=== PATIENT | female | born 1955 | race Caucasian/White ===

== ENCOUNTER 2017-07-26 00:33 | Day surgery (SDC) | payer BC ==
[2017-07-26] VITALS (8 sets, daily range): BP systolic 76–109; BP diastolic 57–96
[~2017-07-26] VITALS: Ht 177.8 cm; Wt 114.8 kg
[~2017-07-26 00:33] MED LIST: ACYC-50 PO; ALB18R INH; AZIT-17 PO; CIT20 PO; CITA-155 PO; DIAZ-1 PO; ETHI1TAB26 PO; IBU800 PO; IBUP-1618 PO; LEVO-85 PO; LIDO5CRE TP; LOR1 PO; LOR5/325 PO; LOR75 PO; OXYC-378 PO; OXYC-944 PO; OXYC10TA67 PO; PRE20 PO; PROC10TA4 PO; VENL225T5 PO; VENL25TA29 PO; VENL75TA12 PO; VENL75TA98 PO
[2017-07-26] MEDS ORDERED: PROPOFOL EMUL(*) 10MG/ML 20 ML 60 ML ONE (06:48)
[2017-07-26] MEDS ORDERED: LIDOCAINE MPF 1% 5 ML VIAL ONE (06:48)
[2017-07-26] MEDS ORDERED: MIDAZOLAM 2 MG/2 ML VIAL IVP PRN (07:20)
[2017-07-26] MEDS ORDERED: LIDOCAINE/SOD BICARB 8.4% SYR ID ONE (07:20)
[2017-07-26] MEDS ORDERED: NORMOSOL R SOLN(*) 1000 ML BAG 1,000 ML IV PRN (07:20)
--- NOTE | 2017-07-26 07:26 | Short(Outpt) Discharge Summary ---
Discharge Summary Reason for Hosp/Final Diag: (1) Encounter for screening colonoscopy Hospital Course & Plan: sigmoid diverticulosis Departure Discharge to: Home Discharge Instructions Home Meds Active Scripts Venlafaxine Hcl (VENLAFAXINE HCL ER) 225 Mg Tab.er.24, 225 MG PO QDAY for 90 Days, #90 TAB 3 Refills Prov:GEORGE BATISTA-CHAVEZ, ONC 04/09/17 Citalopram Hydrobromide (CELEXA) 10 Mg Tablet, 10 MG PO QDAY for 90 Days, #90 TAB 3 Refills Prov:GEORGE BATISTAP-CHAVEZ, ONC 02/12/17 Discontinued Scripts Lorazepam (LORAZEPAM) 1 Mg Tab, 1 MG PO Q6H for anxiety and insomnia, #90 TAB Prov:GEORGE BATISTA-CHAVEZ, ONC 07/04/17 Diet: High Fiber Activity: As Tolerated SANTIAGO MATIAS MD Jul 26, 2017 07:26
--- NOTE | 2017-07-26 07:26 | Post Operative Progress Note ---
Post Operative Progress Note Date: Jul 26, 2017 Time: 08:44 Surgeon: margarita Anesthesia: dr schroeder Pre-Op Diagnosis: screening colonoscopy Post-Op Diagnosis: sigmoid diverticulosis Procedure(s): colonoscopy SANTIAGO MATIAS MD Jul 26, 2017 07:26
--- NOTE | 2017-07-26 14:55 | OPERATIVE REPORT 1 ---
EVENT DATE: July 26, 2017 SURGEON: Red Tyson MD ANESTHESIOLOGIST: Yovany Henderson MD ANESTHESIA: Sedation. PREOPERATIVE DIAGNOSIS Screening colonoscopy. POSTOPERATIVE DIAGNOSIS Sigmoid diverticulosis. PROCEDURE PERFORMED Colonoscopy. DESCRIPTION OF PROCEDURE The patient was placed in the left lateral decubitus position and given intravenous sedation. The rectal exam was unremarkable. A flexible colonoscope was inserted and advanced to the cecum. She had some liquid stool throughout the colon. We were able to suction this pretty effectively and get a good look. No abnormalities were noted in the cecum, right colon, transverse , or descending. Care was taken to look behind the haustral folds. In the sigmoid colon, she had some diverticula. No evidence of diverticulitis. The rectum was normal. The scope was retroflexed in the rectum, and that appeared to be normal. The patient will require repeat colonoscopy in 10 years. YANETH
== END 2017-07-26 09:50 | disposition home or self-care (01) ==
LOC: OR 00:33
PROVIDERS: ATTEND Surgery
DX: Z12.11 Encounter for screening for malignant neoplasm of colon (principal); K57.30 Diverticulosis of large intestine without perforation or abscess without bleeding
CPT/HCPCS: 00812; 45378; J2001; J2704

== ENCOUNTER 2017-08-17 14:30 | Outpatient (RCR) | payer BC ==
[2017-06-11] MEDS: LIDOCAINE/SOD BICARB 8.4% SYR ID PRN (12:29)
[2017-06-11] MEDS: NS(*) 0.9% 100 ML BAG 100 ML IVPB PRN (12:30)
[2017-06-11 12:31] VITALS: BP 118/83
--- NOTE | 2017-06-11 13:14 | ONC Progress Note - NP.Halsey ---
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 continues with maintenance Rituxan every 8 weeks and monthly IVIG. She will receive IVIG today and Rituxan cycle 7 is scheduled for 07/12/2017. Overall patient is feeling well and has no symptoms of sinus pain or congestion, shortness of breath, nausea or vomiting, diarrhea or constipation. Patient is reporting left flank pain which started last week. She has been taking ibuprofen and using heat and ice with relief. Pain increases she stands or ambulates and is better at rest. Patient followed with chiropractor but reports that pain felt worse after manipulation. She does share that she had a hoarse knock the wind out of her and she feels that is when her symptoms started. She would like a urine sample to make sure she is not having a kidney infection or bladder infection. She denies symptoms with urinating. 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 The patient received chemotherapy with six cycles of R-CHOP with rituximab, cyclophosphamide, doxorubicin, vincristine and prednisone, received between September 2008 through January 2009. Her treatment was followed by two courses of maintenance rituximab therapy weekly for four weeks, given in July 2009 and January 2010. The patient was put in remission. She then presented with right parotid gland swelling. She had a CT of soft tissue of neck done on December 28, [address] report showed two well-circumscribed hypo- attenuating homogeneous enhancing masses in the right parotid gland. The smaller of the two may represent an intraparotid lymph node while the larger of the two measures 1.6 cm in diameter. The patient ended by having excisional biopsy of the right parotid lymph node done on January 11, 2016, and the pathology came back positive for CD10 positive clonal B-cell population 14.2% of the sample with predominantly intermediate/mixed cell size, and the pathology was consistent with low grade follicular lymphoma, grade I to II, with increased proliferation index, and her Ki-67 was positive 30 to 70%, average 50%. 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 Bone marrow aspiration biopsy done on January 25, 2016 came back negative for lymphomatous involvement. PET/CT scan done on February 07, 2016 showed a new 8 mm nodule within the anterior aspect of the right parotid gland with SUV 3.2. No distant metastatic disease. There is chronic mucosal thickening within the right maxillary sinus with SUV 4.6, likely inflammatory. The patient started treatment with Rituximab and bendamustine on February 10, 2016. The patient started chemotherapy with rituximab and bendamustine on February 10, 2016. The patient received four courses of rituximab and bendamustine completed on May 05, 2016. She started maintenance rituximab therapy on July 18, 2016. 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 Alcohol History She occasionally has a beer Recreational Drug History She denies use Smoking History: No Smoking Status: Never Smoker Exposure to Second Hand Smoke?: No Medications and Allergies Active Scripts Venlafaxine Hcl (VENLAFAXINE HCL ER) 225 Mg Tab.er.24, 225 MG PO QDAY for 90 Days, #90 TAB 3 Refills Prov:GEORGE BATISTA PLASTICS ENGINEERING TEACHER-BC, ONC 04/09/17 Citalopram Hydrobromide (CELEXA) 10 Mg Tablet, 10 MG PO QDAY for 90 Days, #90 TAB 3 Refills Prov:GEORGE BATISTA PLASTICS ENGINEERING TEACHER-BC, ONC 02/12/17 Allergies: Coded Allergies: Penicillins (Verified Allergy, Mild, 04/15/17) Review of System/Physical Exam Review of Systems All Systems Reviewed/Normal: Yes, Except as Noted Hematologic: Positive for Fatigue Musculoskeletal: Positive for Muscle Pain (left lateral hip pain) Psychiatric: Depression (this is doing well with current medications) Physical Exam Vital Signs Temperature: 98.6 Pulse: 69 BP Systolic: 118 BP Diastolic: 83 Respiratory Rate: 16 O2 SAT: 92 O2 Delivery: Height (inches) 70.00 Weight lb: 250 Weight oz: Weight Kg (Manjit): 116.466742 Pain: 3 ECOG Score: 1 General: Stable, Well Developed, Well Nourished, Not In Acute Distress HEENT: No Trauma, No Icterus, No Mucositis Neck: Supple Lungs: Clear to Auscultation Heart: Regular Rate, Regular Rhythm, No Gallops, No Murmurs Abdomen: Soft and Nontender, No Hepatosplenomegaly, No Masses, Other (bowel sounds are active) Extremities: No Cyanosis, No Clubbing, No Edema, Other (pain on the left medial hip area with deep palpation.) Lymphadenopathy: No Cervical Psychiatric: Mood appears normal, Affect appears normal Skin: No Skin Rashes, No Bruising, No Purpura Assessment and Plan Assessment & Plan 1. Recurrent follicular lymphoma grade 1 with involvement of the right parotid gland. Patient initially diagnosed in September of 2008 with stage IV grade 1 follicular lymphoma with t(14,18) and complex cytogenetics. She was treated with six cycles of R-CHOP between September 2008 through January 2009 for six cycles , and the patient was brought into complete remission after that. She received two courses of maintenance rituximab therapy for four weeks each course. She received the first course of maintenance rituximab therapy in July of 2009 and the second course was in January of 2010. She presented with a mass in the right parotid gland, and excisional biopsy of the right parotid lymph node January 11, 2016 came back positive for low-grade follicular lymphoma grade 1-2. Ki-67 was high between 30% to 70%, average 50%. Cytogenetic analysis showed multiple chromosomal abnormalities. Patient received 4 courses of rituximab and bendamustine between February 10, 2016 through May 05, 2016. She started maintenance rituximab therapy on July 18, 2016. She receives a dose every 8 weeks. She will follow with Dr. Sawyer with a CBC, chem panel, LDH, and uric acid. She will continue with monthly IVIG 2. Hypogammaglobulinemia, currently on IVIG 0.5 g/kg every month with improvement of her recurrent upper respiratory tract infection. Symptoms have resolved 3. Left hip and flank pain. Patient did experience trauma from a horse. She is currently using ibuprofen and will also use Tylenol alternating. She will continue to use heat and ice. I will do a urine sample to rule out bladder or kidney infection. Patient agrees with this plan of care. PLAN 1. Rituximab therapy. Patient will receive cycle 7 on 07/12/2017. 2. Patient to return in two months with CBC, chem panel, LDH, uric acid. 3. IVIG therapy today and will continue monthly. 4. Patient to contact us for any new concerns or complaints. 5. Urine sample completed today, culture and sensitivity if WBC is greater than 3. I personally spent a total of 20 minutes. Of that 15 minutes was counseling/ coordination of patient's care. See my note above for details. GEORGE BATISTA PLASTICS ENGINEERING TEACHER-BC, ONC Jun 11, 2017 13:14
[2017-07-04 15:46] VITALS: BP 116/81
--- NOTE | 2017-07-04 16:08 | ONC Progress Note - NP.Halsey ---
Patient History Date of Service Jul 04, 2017 Reason For Visit/HPI Patient is seen in the clinic today for increased fatigue related to possible dehydration and current UTI. She was recently seen by TRACY and started on Bactrim for UTI with symptoms of burning, urgency and blood in the urine. She is feeling better today but felt that increased fluids would help. 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 She continues with maintenance Rituxan every 8 weeks and monthly IVIG. She received IVIG recently, given on a monthly pasis and Rituxan cycle 7 is scheduled for 07/12/2017. She feels that the IVIG is helping with her frequent infections as she has not had a sinus infection recently. 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 The patient received chemotherapy with six cycles of R-CHOP with rituximab, cyclophosphamide, doxorubicin, vincristine and prednisone, received between September 2008 through January 2009. Her treatment was followed by two courses of maintenance rituximab therapy weekly for four weeks, given in July 2009 and January 2010. The patient was put in remission. She then presented with right parotid gland swelling. She had a CT of soft tissue of neck done on December 28, [address] report showed two well-circumscribed hypo- attenuating homogeneous enhancing masses in the right parotid gland. The smaller of the two may represent an intraparotid lymph node while the larger of the two measures 1.6 cm in diameter. The patient ended by having excisional biopsy of the right parotid lymph node done on January 11, 2016, and the pathology came back positive for CD10 positive clonal B-cell population 14.2% of the sample with predominantly intermediate/mixed cell size, and the pathology was consistent with low grade follicular lymphoma, grade I to II, with increased proliferation index, and her Ki-67 was positive 30 to 70%, average 50%. 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 Bone marrow aspiration biopsy done on January 25, 2016 came back negative for lymphomatous involvement. PET/CT scan done on February 07, 2016 showed a new 8 mm nodule within the anterior aspect of the right parotid gland with SUV 3.2. No distant metastatic disease. There is chronic mucosal thickening within the right maxillary sinus with SUV 4.6, likely inflammatory. The patient started treatment with Rituximab and bendamustine on February 10, 2016. The patient started chemotherapy with rituximab and bendamustine on February 10, 2016. The patient received four courses of rituximab and bendamustine completed on May 05, 2016. She started maintenance rituximab therapy on July 18, 2016. 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 Alcohol History She occasionally has a beer Recreational Drug History She denies use Smoking History: No Smoking Status: Never Smoker Exposure to Second Hand Smoke?: No Medications and Allergies Active Scripts Venlafaxine Hcl (VENLAFAXINE HCL ER) 225 Mg Tab.er.24, 225 MG PO QDAY for 90 Days, #90 TAB 3 Refills Prov:GEORGE BATISTA-BC, ONC 04/09/17 Citalopram Hydrobromide (CELEXA) 10 Mg Tablet, 10 MG PO QDAY for 90 Days, #90 TAB 3 Refills Prov:GEORGE BATISTA-CHAVEZ, ONC 02/12/17 Allergies: Coded Allergies: Penicillins (Verified Allergy, Mild, 04/15/17) Review of System/Physical Exam Review of Systems All Systems Reviewed/Normal: Yes, Except as Noted Constitutional: Positive for Recent Infection (see above), Positive for Other ( dehydration) Genitourinary: Positive for Hematuria (see above), Positive for Dysuria Hematologic: Positive for Fatigue Physical Exam Vital Signs Temperature: 97.2 Pulse: 74 BP Systolic: 116 BP Diastolic: 81 Respiratory Rate: 18 O2 SAT: 95 O2 Delivery: Height (inches) 70.00 Weight lb: 250 Weight oz: Weight Kg (Manjit): [id number] Pain: 0 ECOG Score: 1 General: Stable, Well Developed, Well Nourished, Not In Acute Distress Lungs: Clear to Auscultation Heart: Regular Rate, Regular Rhythm, No Gallops, No Murmurs Psychiatric: Mood appears normal, Affect appears normal Skin: No Skin Rashes, No Bruising, No Purpura Diagnostic Studies Diagnostic Studies Laboratory Laboratory Tests 06/11/17 13:28: Urine Color Straw, Urine Clarity Clear, Urine pH 6.0, Urine Specific [place] 1.004, Urine Protein Negative, Urine Glucose (UA) Negative, Urine Ketones Negative, Urine Blood Negative, Urine Nitrite Negative, Urine Bilirubin Negative , Urine Urobilinogen Negative, Urine Leukocyte Esterase Negative, Urine RBC None , Urine WBC None, Urine Squamous Epithelial Cells Few, Urine Bacteria Negative, Urine Mucus None Assessment and Plan Assessment & Plan Patient is seen in the clinic today for hydration to help manage her fatigue possibly from dehydration. She is currently being treated for a UTI with Bactrim. She denied any fever or chills but feels that she is not drinking enough fluids with the medication. She will receive 1 liter NS today. The following is a copy from my previous note: 1. Recurrent follicular lymphoma grade 1 with involvement of the right parotid gland. Patient initially diagnosed in September of 2008 with stage IV grade 1 follicular lymphoma with t(14,18) and complex cytogenetics. She was treated with six cycles of R-CHOP between September 2008 through January 2009 for six cycles , and the patient was brought into complete remission after that. She received two courses of maintenance rituximab therapy for four weeks each course. She received the first course of maintenance rituximab therapy in July of 2009 and the second course was in January of 2010. She presented with a mass in the right parotid gland, and excisional biopsy of the right parotid lymph node January 11, 2016 came back positive for low-grade follicular lymphoma grade 1-2. Ki-67 was high between 30% to 70%, average 50%. Cytogenetic analysis showed multiple chromosomal abnormalities. Patient received 4 courses of rituximab and bendamustine between February 10, 2016 through May 05, 2016. She started maintenance rituximab therapy on July 18, 2016. She receives a dose every 8 weeks. She will follow with Dr. Sawyer with a CBC, chem panel, LDH, and uric acid. She will continue with monthly IVIG 2. Hypogammaglobulinemia, currently on IVIG 0.5 g/kg every month with improvement of her recurrent upper respiratory tract infection. Symptoms have resolved 3. Left hip and flank pain. Patient did experience trauma from a horse. She is currently using ibuprofen and will also use Tylenol alternating. She will continue to use heat and ice. I will do a urine sample to rule out bladder or kidney infection. Patient agrees with this plan of care. PLAN 1. Rituximab therapy. Patient will receive cycle 7 on 07/12/2017. 2. Patient to return in two months with CBC, chem panel, LDH, uric acid. 3. IVIG therapy today and will continue monthly. 4. Patient to contact us for any new concerns or complaints. I personally spent a total of 20 minutes. Of that 15 minutes was counseling/ coordination of patient's care. See my note above for details. Copies to: ANT GARCIA NANCY J SALES RECRUITER-BC, ONC Jul 04, 2017 16:08
[2017-07-04] MEDS: LIDOCAINE/SOD BICARB 8.4% SYR ID PRN (16:16)
[2017-07-04] MEDS: NS(*) 0.9% 500 ML BAG 500 ML IV PRN ×2 (16:16→16:34)
[2017-07-04] MEDS: HEPARIN FLSH (PORT) 500 UN/5ML IVP PRN (16:16)
[2017-07-09 12:33] VITALS: BP 121/86
[2017-07-09 12:59] LABS: PLATELET COUNT, AUTOMATED 224 K/uL (150-450)
--- NOTE | 2017-07-09 13:17 | ONC Progress Note - NP.Halsey ---
Patient History Date of Service Jul 09, 2017 Reason For Visit/HPI Patient is seen in the clinic today for follow-up of her recurrent follicular lymphoma with involvement of the right parotid gland. Patient continues to receive Rituxan every 8 weeks and monthly IVIG. She is scheduled for cycle 7 of Rituxan today. Patient recently was treated with Bactrim by her physicians digital marketing assistant for urinary tract infection. Patient reports that she is feeling better today and that hydration that she received last week helped her significantly. She is feeling well today and has no concerns. 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 The patient received chemotherapy with six cycles of R-CHOP with rituximab, cyclophosphamide, doxorubicin, vincristine and prednisone, received between September 2008 through January 2009. Her treatment was followed by two courses of maintenance rituximab therapy weekly for four weeks, given in July 2009 and January 2010. The patient was put in remission. She then presented with right parotid gland swelling. She had a CT of soft tissue of neck done on December 28, [address] report showed two well-circumscribed hypo- attenuating homogeneous enhancing masses in the right parotid gland. The smaller of the two may represent an intraparotid lymph node while the larger of the two measures 1.6 cm in diameter. The patient ended by having excisional biopsy of the right parotid lymph node done on January 11, 2016, and the pathology came back positive for CD10 positive clonal B-cell population 14.2% of the sample with predominantly intermediate/mixed cell size, and the pathology was consistent with low grade follicular lymphoma, grade I to II, with increased proliferation index, and her Ki-67 was positive 30 to 70%, average 50%. 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 Bone marrow aspiration biopsy done on January 25, 2016 came back negative for lymphomatous involvement. PET/CT scan done on February 07, 2016 showed a new 8 mm nodule within the anterior aspect of the right parotid gland with SUV 3.2. No distant metastatic disease. There is chronic mucosal thickening within the right maxillary sinus with SUV 4.6, likely inflammatory. The patient started treatment with Rituximab and bendamustine on February 10, 2016. The patient started chemotherapy with rituximab and bendamustine on February 10, 2016. The patient received four courses of rituximab and bendamustine completed on May 05, 2016. She started maintenance rituximab therapy on July 18, 2016. 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 Alcohol History She occasionally has a beer Recreational Drug History She denies use Smoking History: No Smoking Status: Never Smoker Exposure to Second Hand Smoke?: No Medications and Allergies Active Scripts Lorazepam (LORAZEPAM) 1 Mg Tab, 1 MG PO Q6H for anxiety and insomnia, #90 TAB Prov:GEORGE BATISTA-, ONC 07/04/17 Venlafaxine Hcl (VENLAFAXINE HCL ER) 225 Mg Tab.er.24, 225 MG PO QDAY for 90 Days, #90 TAB 3 Refills Prov:GEORGE BATISTA, ONC 04/09/17 Citalopram Hydrobromide (CELEXA) 10 Mg Tablet, 10 MG PO QDAY for 90 Days, #90 TAB 3 Refills Prov:GEORGE BATISTA, ONC 02/12/17 Allergies: Coded Allergies: Penicillins (Verified Allergy, Mild, 04/15/17) Review of System/Physical Exam Review of Systems All Systems Reviewed/Normal: Yes, Except as Noted Hematologic: Positive for Fatigue (mild fatigue) Physical Exam Vital Signs Temperature: 97.9 Pulse: 67 BP Systolic: 121 BP Diastolic: 86 Respiratory Rate: 18 O2 SAT: 96 O2 Delivery: Height (inches) 70.00 Weight lb: 250 Weight oz: Weight Kg (Manjit): 116.036343 Pain: 0 ECOG Score: 0 General: Stable, Well Developed, Well Nourished, Not In Acute Distress HEENT: No Trauma, No Conjunctivitis, No Icterus, No Mucositis, No Oral Thrush, No Sinus Tenderness Neck: No Supple, No Thyromegaly, Other Lungs: Clear to Auscultation Heart: Regular Rate, Regular Rhythm, No Gallops Abdomen: Soft and Nontender, No Hepatosplenomegaly Extremities: No Cyanosis, No Clubbing, No Edema Lymphadenopathy: No Cervical, No Subclavicular Psychiatric: Mood appears normal, Affect appears normal Skin: No Skin Rashes, No Bruising, No Purpura Diagnostic Studies Diagnostic Studies Laboratory Laboratory Tests 07/09/17 12:45 Laboratory Tests 06/11/17 13:28: Urine Color Straw, Urine Clarity Clear, Urine pH 6.0, Urine Specific [place] 1.004, Urine Protein Negative, Urine Glucose (UA) Negative, Urine Ketones Negative, Urine Blood Negative, Urine Nitrite Negative, Urine Bilirubin Negative , Urine Urobilinogen Negative, Urine Leukocyte Esterase Negative, Urine RBC None , Urine WBC None, Urine Squamous Epithelial Cells Few, Urine Bacteria Negative, Urine Mucus None 07/09/17 12:45: White Blood Count 3.6, Red Blood Count 4.41, Hemoglobin 14.5, Hematocrit 42.1, Mean Corpuscular Volume 95.6, Mean Corpuscular Hemoglobin 33.0, Mean Corpuscular Hemoglobin Concent 34.5, Red Cell Distribution Width 12.6, Platelet Count 224, Mean Platelet Volume 7.4, Neutrophils (%) (Auto) 57.9, Lymphocytes (% ) (Auto) 28.2, Monocytes (%) (Auto) 9.3, Eosinophils (%) (Auto) 3.2, Basophils ( %) (Auto) 1.4, Nucleated RBC Relative Count (auto) 0.1, Neutrophils # (Auto) 2.1 , Lymphocytes # (Auto) 1.0, Monocytes # (Auto) 0.3, Eosinophils # (Auto) 0.1, Basophils # (Auto) 0.1, Nucleated RBC Absolute Count (auto) 0.00, Sodium Level 135, Potassium Level 4.3, Chloride Level 100, Carbon Dioxide Level 29, Blood Urea Nitrogen 19, Creatinine 0.80, Glomerular Filtration Rate Calc > 60.0, Random Glucose 93, Calcium Level 9.4, Total Bilirubin 0.5, Aspartate Amino Transf (AST/SGOT) 23, Alanine Aminotransferase (ALT/SGPT) 38, Alkaline Phosphatase 80, Total Protein 7.0, Albumin 3.9 Assessment and Plan Assessment & Plan 1. Recurrent follicular lymphoma grade 1 with involvement of the right parotid gland. Patient initially diagnosed in September of 2008 with stage IV grade 1 follicular lymphoma with t(14,18) and complex cytogenetics. She was treated with six cycles of R-CHOP between September 2008 through January 2009 for six cycles , and the patient was brought into complete remission after that. She received two courses of maintenance rituximab therapy for four weeks each course. She received the first course of maintenance rituximab therapy in July of 2009 and the second course was in January of 2010. She presented with a mass in the right parotid gland, and excisional biopsy of the right parotid lymph node January 11, 2016 came back positive for low-grade follicular lymphoma grade 1-2. Ki-67 was high between 30% to 70%, average 50%. Cytogenetic analysis showed multiple chromosomal abnormalities. Patient received 4 courses of rituximab and bendamustine between February 10, 2016 through May 05, 2016. She started maintenance rituximab therapy on July 18, 2016. She receives a dose every 8 weeks and will receive cycle 7 today. She will follow with Dr. Sawyer with a CBC, chem panel, LDH, and uric acid. She will continue with monthly IVIG 2. Hypogammaglobulinemia, currently on IVIG 0.5 g/kg every month with improvement of her recurrent upper respiratory tract infection. Symptoms have resolved 3. Left hip and flank pain. Patient did experience trauma from a horse. She is currently using ibuprofen and will also use Tylenol alternating. She will continue to use heat and ice. PLAN 1. Rituximab therapy. Patient will receive cycle 7 today 2. Patient to return in two months with CBC, chem panel, LDH, uric acid. 3. IVIG therapy monthly. 4. Patient to contact us for any new concerns or complaints. I personally spent a total of 20 minutes. Of that 15 minutes was counseling/ coordination of patient's care. See my note above for details. Copies to: ANT GARCIA NANCY J EDUCATIONAL TECHNICIAN-BC, ONC Jul 09, 2017 13:17
[2017-07-09] MEDS: NS(*) 0.9% 100 ML BAG 100 ML IVPB PRN (13:18)
[2017-07-09] MEDS: LIDOCAINE/SOD BICARB 8.4% SYR ID PRN (13:18)
[2017-07-16] MEDS: LIDOCAINE/SOD BICARB 8.4% SYR ID PRN (12:55)
[2017-07-16 13:44] VITALS: BP 122/74
[2017-07-16] MEDS: NS(*) 0.9% 100 ML BAG 100 ML IVPB PRN (16:01)
[2017-07-16] MEDS: HEPARIN FLSH (PORT) 500 UN/5ML IVP PRN (16:01)
[2017-07-20 15:41] VITALS: BP 135/83
--- NOTE | 2017-07-20 22:27 | ONCOLOGY FOLLOW UP NOTE ---
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 CHIEF COMPLAINT The patient is here today for cycle number seven of maintenance rituximab therapy for her recurrent follicular lymphoma of the right parotid gland. ONCOLOGY HISTORY The patient is a 61-year-old female who was diagnosed with follicular lymphoma, stage IV, grade I, with translocation 14;18 and complex cytogenetics in September 2008. The patient received chemotherapy with six cycles of R-CHOP with rituximab, cyclophosphamide, doxorubicin, vincristine and prednisone, received between September 2008 through January 2009. Her treatment was followed by two courses of maintenance rituximab therapy weekly for four weeks, given in July 2009 and January 2010. The patient was put in remission since then. She presented recently with right parotid gland swelling. She had a CT of soft tissue of neck done on December 28, [address] report showed two well- circumscribed hypo-attenuating homogeneous enhancing masses in the right parotid gland. The smaller of the two may represent an intraparotid lymph node while the larger of the two measures 1.6 cm in diameter. The patient ended by having excisional biopsy of the right parotid lymph node done on January 11, 2016, and the pathology came back positive for CD10 positive clonal B-cell population 14.2% of the sample with predominantly intermediate/mixed cell size, and the pathology was consistent with low grade follicular lymphoma, grade I to II, with increased proliferation index, and her Ki-67 was positive 30 to 70%, average 50%. 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 Bone marrow aspiration biopsy done on January 25, 2016 came back negative for lymphomatous involvement. PET/CT scan done on February 07, 2016 showed a new 8 mm nodule within the anterior aspect of the right parotid gland with SUV 3.2. No distant metastatic disease. There is chronic mucosal thickening within the right maxillary sinus with SUV 4.6, likely inflammatory. The patient started treatment with Rituximab and bendamustine on February 10, 2016. The patient started chemotherapy with rituximab and bendamustine on February 10, 2016. The patient received four courses of rituximab and bendamustine completed on May 05, 2016. She started maintenance rituximab therapy on July 18, 2016. HISTORY OF PRESENT ILLNESS Patient is here today for cycle number seven of maintenance rituximab therapy for her recurrent follicular lymphoma. Patient is doing very well currently and she is totally asymptomatic. She denies any B symptoms. PAST MEDICAL HISTORY History of stage IV follicular lymphoma, diagnosed September 2008, with recurrence in the right parotid area in December 2015. PAST SURGICAL HISTORY 1. in July 2000 and July 1997. 2. Removal of hematoma of the left lower leg, September 1992. 3. Tonsillectomy as a child. FAMILY HISTORY Maternal grandmother had bone cancer. Mother had uterine cancer. SOCIAL HISTORY The patient is with two daughters. She works as a teacher. She drinks occasionally like one beer per month. Denies any abuse of tobacco or illicit drugs. CURRENT MEDICATIONS 1. Celexa 10 mg daily. 2. Effexor 225 mg daily. ALLERGIES PENICILLIN; she does not know the reaction. REVIEW OF SYSTEMS CONSTITUTIONAL: The patient has fever. HEENT: Ears: No tinnitus or hearing problem. Nose: The patient has nasal discharge and she is sneezing also. Throat: No sore throat or mouth ulcers. Eyes: No diplopia or visual changes. RESPIRATORY: She has cough with expectoration and shortness of breath. CARDIOVASCULAR: No chest pain, orthopnea, or paroxysmal nocturnal dyspnea (PND) . No edema. No palpitations. GASTROINTESTINAL: No nausea or vomiting. No diarrhea or constipation. No change in bowel movements. No heartburn or swallowing difficulties. No abdominal pain. No jaundice. No hematemesis, melena or rectal bleeding. GENITOURINARY: She has recent urinary tract infection, treated with Bactrim. MUSCULOSKELETAL: She has pain in the right hip. NEUROLOGICAL: No tingling or numbness in the hands or feet. No headaches or convulsions. HEMATOLOGIC/LYMPHATIC: She is weak, tired and fatigued. SKIN: No skin rash or lumps. PSYCHIATRIC: No anxiety or depression. PHYSICAL EXAMINATION GENERAL: Looks stable. Well-developed, well-nourished, and in no acute distress. VITAL SIGNS: Blood pressure 135/83, pulse 73 per minute, respirations 16 per minute, temperature 96.7, pulse ox 94% on room air. HEENT: Head: Atraumatic. No sinus tenderness to palpation. Eyes: No icterus or conjunctivitis. Mouth and throat: No oral thrush or mucositis. NECK: The mass in the right parotid is getting smaller compared to her last visit. LUNGS: Clear to auscultation and percussion bilaterally. HEART: Regular rate and rhythm. No gallops, murmurs, clicks or rubs. ABDOMEN: Soft and lax. No tenderness. No hepatosplenomegaly. No masses. EXTREMITIES: No cyanosis, clubbing or edema. LYMPHATICS: No peripheral lymphadenopathy. NEUROLOGICAL: Conscious, alert and oriented times three. No focal motor or sensory deficits. PSYCHIATRIC: Mood and affect appear normal. SKIN: No skin rash, bruise or purpuric eruption. DIAGNOSTIC DATA CBC showed a white count of 3.6, hemoglobin 14.5, hematocrit 42.1, platelets 224 ,000. Chem panel totally normal except BUN 19, sodium 135. Other parameters are normal. ASSESSMENT 1. Recurrent follicular lymphoma grade 1 with involvement of the right parotid gland. Patient initially diagnosed in September of 2008 with stage IV grade 1 follicular lymphoma with t(14,18) and complex cytogenetics. She was treated with six cycles of R-CHOP between September 2008 through January 2009 for six cycles , and the patient put into complete remission after that. She received two courses of maintenance rituximab therapy for four weeks each course. She received the first course of maintenance rituximab therapy in July of 2009 and the second course in January 2010. She presented with a mass in the right parotid gland, and excisional biopsy of the right parotid lymph node January 11, 2016 came back positive for low-grade follicular lymphoma grade 1-2. Ki-67 was high between 30% to 70%, average 50%. Cytogenetic analysis showed multiple chromosomal abnormalities. Patient received four courses of rituximab and bendamustine between February 10, 2016 through May 05, 2016. She started maintenance rituximab therapy July 18, 2016. She received six courses so far, and I am planning to proceed with her seventh today. She is tolerating treatment very well without any problems so far. I will see her again two months with CBC, chem panel, LDH, and uric acid. 2. Hypogammaglobulinemia, currently on IVIG 0.5 g/kg every month with improvement of her recurrent upper respiratory tract infection. PLAN 1. Rituximab therapy. This will be cycle number seven. 2. Patient to return in two months with CBC, chem panel, LDH, uric acid. 3. CBC, chem panel to be checked monthly prior to IVIG therapy. 4. Patient to contact us for any new concerns or complaints. [facility]
[2017-08-13 12:52] VITALS: BP 121/71
[2017-08-13] MEDS: LIDOCAINE/SOD BICARB 8.4% SYR ID PRN (13:00)
[2017-08-13] MEDS: NS(*) 0.9% 100 ML BAG 100 ML IVPB PRN (13:01)
--- NOTE | 2017-08-13 13:33 | ONC Progress Note - NP.Halsey ---
Patient History Date of Service Aug 13, 2017 Reason For Visit/HPI Patient is seen in the clinic today for follow-up of her recurrent follicular lymphoma with involvement of the right parotid gland. Patient continues to receive Rituxan every 8 weeks and monthly IVIG for low IgGG levels with a history of long-standing sinus infections. She is scheduled for cycle 8 of Rituxan next month. Overall patient is feeling very well and has no concerns. Last PET/CT scan has been over a year ago. In review patient has not had bilateral mammogram. A screening mammogram is recommended. In addition patient reports that she had a colonoscopy with Dr. Tyson which was unremarkable. 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 The patient received chemotherapy with six cycles of R-CHOP with rituximab, cyclophosphamide, doxorubicin, vincristine and prednisone, received between September 2008 through January 2009. Her treatment was followed by two courses of maintenance rituximab therapy weekly for four weeks, given in July 2009 and January 2010. The patient was put in remission. She then presented with right parotid gland swelling. She had a CT of soft tissue of neck done on December 28, [address] report showed two well-circumscribed hypo- attenuating homogeneous enhancing masses in the right parotid gland. The smaller of the two may represent an intraparotid lymph node while the larger of the two measures 1.6 cm in diameter. The patient ended by having excisional biopsy of the right parotid lymph node done on January 11, 2016, and the pathology came back positive for CD10 positive clonal B-cell population 14.2% of the sample with predominantly intermediate/mixed cell size, and the pathology was consistent with low grade follicular lymphoma, grade I to II, with increased proliferation index, and her Ki-67 was positive 30 to 70%, average 50%. 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 Bone marrow aspiration biopsy done on January 25, 2016 came back negative for lymphomatous involvement. PET/CT scan done on February 07, 2016 showed a new 8 mm nodule within the anterior aspect of the right parotid gland with SUV 3.2. No distant metastatic disease. There is chronic mucosal thickening within the right maxillary sinus with SUV 4.6, likely inflammatory. The patient started treatment with Rituximab and bendamustine on February 10, 2016. The patient started chemotherapy with rituximab and bendamustine on February 10, 2016. The patient received four courses of rituximab and bendamustine completed on May 05, 2016. She started maintenance rituximab therapy on July 18, 2016. 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 Alcohol History She occasionally has a beer Recreational Drug History She denies use Smoking History: No Smoking Status: Never Smoker Exposure to Second Hand Smoke?: No Medications and Allergies Active Scripts Venlafaxine Hcl (VENLAFAXINE HCL ER) 225 Mg Tab.er.24, 225 MG PO QDAY for 90 Days, #90 TAB 3 Refills Prov:GEORGE BATISTA EMBROIDERY ASSISTANT-BC, ONC 08/13/17 Citalopram Hydrobromide (CELEXA) 10 Mg Tablet, 10 MG PO QDAY for 90 Days, #90 TAB 3 Refills Prov:GEORGE BATISTA EMBROIDERY ASSISTANT-BC, ONC 02/12/17 Allergies: Coded Allergies: Penicillins (Verified Allergy, Mild, 04/15/17) Review of System/Physical Exam Review of Systems All Systems Reviewed/Normal: Yes, Except as Noted Psychiatric: Anxiety (treated with Effexor and cytalopram for over 8 years.) Physical Exam Vital Signs Temperature: 97.7 Pulse: 76 BP Systolic: 121 BP Diastolic: 71 Respiratory Rate: 16 O2 SAT: 93 O2 Delivery: Height (inches) 70.00 Weight lb: 250 Weight oz: Weight Kg (Manjit): [phone] Pain: 0 ECOG Score: 0 General: Stable, Well Developed, Well Nourished, Not In Acute Distress HEENT: No Trauma, No Conjunctivitis Neck: Supple Lungs: Clear to Auscultation Heart: Regular Rate, Regular Rhythm, No Gallops Psychiatric: Mood appears normal, Affect appears normal Skin: No Skin Rashes, No Bruising, No Purpura Diagnostic Studies Diagnostic Studies Laboratory Laboratory Tests 07/09/17 12:45 Laboratory Tests 06/11/17 13:28: Urine Color Straw, Urine Clarity Clear, Urine pH 6.0, Urine Specific [place] 1.004, Urine Protein Negative, Urine Glucose (UA) Negative, Urine Ketones Negative, Urine Blood Negative, Urine Nitrite Negative, Urine Bilirubin Negative , Urine Urobilinogen Negative, Urine Leukocyte Esterase Negative, Urine RBC None , Urine WBC None, Urine Squamous Epithelial Cells Few, Urine Bacteria Negative, Urine Mucus None 07/09/17 12:45: White Blood Count 3.6, Red Blood Count 4.41, Hemoglobin 14.5, Hematocrit 42.1, Mean Corpuscular Volume 95.6, Mean Corpuscular Hemoglobin 33.0, Mean Corpuscular Hemoglobin Concent 34.5, Red Cell Distribution Width 12.6, Platelet Count 224, Mean Platelet Volume 7.4, Neutrophils (%) (Auto) 57.9, Lymphocytes (% ) (Auto) 28.2, Monocytes (%) (Auto) 9.3, Eosinophils (%) (Auto) 3.2, Basophils ( %) (Auto) 1.4, Nucleated RBC Relative Count (auto) 0.1, Neutrophils # (Auto) 2.1 , Lymphocytes # (Auto) 1.0, Monocytes # (Auto) 0.3, Eosinophils # (Auto) 0.1, Basophils # (Auto) 0.1, Nucleated RBC Absolute Count (auto) 0.00, Sodium Level 135, Potassium Level 4.3, Chloride Level 100, Carbon Dioxide Level 29, Blood Urea Nitrogen 19, Creatinine 0.80, Glomerular Filtration Rate Calc > 60.0, Random Glucose 93, Calcium Level 9.4, Total Bilirubin 0.5, Aspartate Amino Transf (AST/SGOT) 23, Alanine Aminotransferase (ALT/SGPT) 38, Alkaline Phosphatase 80, Total Protein 7.0, Albumin 3.9 Assessment and Plan Assessment & Plan 1. Recurrent follicular lymphoma grade 1 with involvement of the right parotid gland. Patient initially diagnosed in September of 2008 with stage IV grade 1 follicular lymphoma with t(14,18) and complex cytogenetics. She was treated with six cycles of R-CHOP between September 2008 through January 2009 for six cycles , and the patient was brought into complete remission after that. She received two courses of maintenance rituximab therapy for four weeks each course. She received the first course of maintenance rituximab therapy in July of 2009 and the second course was in January of 2010. She presented with a mass in the right parotid gland, and excisional biopsy of the right parotid lymph node January 11, 2016 came back positive for low-grade follicular lymphoma grade 1-2. Ki-67 was high between 30% to 70%, average 50%. Cytogenetic analysis showed multiple chromosomal abnormalities. Patient received 4 courses of rituximab and bendamustine between February 10, 2016 through May 05, 2016. She started maintenance rituximab therapy on July 18, 2016. She receives a dose every 8 weeks and will receive cycle 8 next month. She will follow with Dr. Sawyer with a CBC, chem panel, LDH, and uric acid. IG 2. Hypogammaglobulinemia, currently on IVIG 0.5 g/kg every month with improvement of her recurrent upper respiratory tract infection. Symptoms have resolved. She will continue with monthly IV 3 Anxiety and depression. Patient is currently on Effexor and Citalopram originated approximately 8 years ago. Patient feels that symptoms are stable. PLAN 1. Rituximab therapy. Patient will receive cycle 8 next months 2. Patient to return next month with CBC, chem panel, LDH, uric acid. 3. IVIG therapy monthly- today. 4. Patient to contact us for any new concerns or complaints. I personally spent a total of 20 minutes. Of that 15 minutes was counseling/ coordination of patient's care. See my note above for details. GEORGE BATISTA EMBROIDERY ASSISTANT-BC, ONC Aug 13, 2017 13:33
[2017-08-13] MEDS: HEPARIN FLSH (PORT) 500 UN/5ML IVP PRN (16:28)
[2017-08-13 17:05] LABS: PLATELET COUNT, AUTOMATED 181 K/uL (150-450)
[~2017-08-17] VITALS: Ht 177.8 cm; Wt 116.9 kg
[~2017-08-17 14:30] MED LIST changes: +ACETAMINOPHEN 325 MG TAB PO PRN; +ALTEPLASE RECOMB 2 MG VIAL IVP PRN; +DEXTROSE 5%(*) 100 ML BAG 100 ML IVPB PRN; +MEPERIDINE 50 MG/ML SYR IVP PRN; +WATER STERILE 10 ML VIAL IVP PRN; +[UNRECOGNIZED DRUG - MIXTURE] IV ONE; +[UNRECOGNIZED DRUG - MIXTURE] IV ONE; +diphenhydrAMINE 25 MG CAP PO PRN; +riTUXimab 500 MG/50 ML SDV 900 MG in NS(*) 0.9% 1000 ML BAG 810 ML IV ONE
[2017-08-17] MEDS: NS(*) 0.9% 500 ML BAG 500 ML IV PRN ×2 (15:00→15:35)
[2017-08-17 16:31] VITALS: BP 121/71
[2017-08-20] MEDS ORDERED: VENL75TA98 PO (07:44)
[2017-08-20] MEDS ORDERED: PRED-1 PO (09:46)
[2017-08-27] MEDS ORDERED: VENL150C61 PO (18:53)
[2017-08-27] MEDS ORDERED: VENL75CA58 PO (18:53)
== END 2017-09-06 ==
LOC: SPU 14:30
PROVIDERS: ATTEND Internal Medicine Hematology
DX: C82.01 Follicular lymphoma grade I, lymph nodes of head, face, and neck (principal); Z92.21 Personal history of antineoplastic chemotherapy; Z92.3 Personal history of irradiation; D80.1 Nonfamilial hypogammaglobulinemia; R53.83 Other fatigue; Z79.899 Other long term (current) drug therapy
CPT/HCPCS: 81001; 83615; 84550; 85025; 96360; 96365; 96366; 96413; 96415; J1459; J1642; J7030; J7040; J7050; J9310; Q0163; 82040; 82247; 82310; 82374; 82435; 82565; 82947; 84075; 84132; 84155; 84295; 84450; 84460; 84520

== ENCOUNTER 2017-08-27 18:44 | Emergency (ER) | payer BC ==
[~2017-08-27 18:44] MED LIST changes: -VENL150C61 PO; -VENL75CA58 PO
[2017-08-27] MEDS ORDERED: VENL75CA58 PO (18:53)
[2017-08-27] MEDS ORDERED: VENL150C61 PO (18:53)
--- NOTE | 2017-08-27 19:10 | ER Report ---
History and Physical Time Seen By MD: 19:09 Hx. of Stated Complaint: Pt sent from urgent care. Fighting cancer. Sent for elevated bilirubin levels. Eyes appear yellow. HPI/ROS 61-year-old female with history of lymphoma sent from urgent care with evaluated liver enzymes, itchiness and nausea. Patient has had some mild to moderate nausea for about a week with some mild intermittent right upper quadrant abdominal pain. Most significant issues today is the itching which has been there for also about a week but has gotten significantly worse over the last 24-48 hours. She's had no diarrhea or vomiting. She denies any fevers or chills. Denies any headache cough congestion, sore throat, chest pain, rash, urinary burning or frequency, diarrhea. She's had no visual changes and denies any unilateral numbness or weakness. She does note that she's had increased bruising that she's noticed recently. No increased thirst. Review of systems per history of present illness otherwise negative Remainder of the 14 system rev: Yes Allergies: Coded Allergies: Penicillins (Verified Allergy, Mild, 04/15/17) Home Meds Active Scripts Venlafaxine Hcl (VENLAFAXINE HCL ER) 75 Mg Tab.er.24, 75 MG PO TID, #90 TAB 9 Refills Prov:GEORGE BATISTA-BC, ONC 08/20/17 Citalopram Hydrobromide (CELEXA) 10 Mg Tablet, 10 MG PO QDAY for 90 Days, #90 TAB 3 Refills Prov:GEORGE BATISTA-CHAVEZ, ONC 02/12/17 Discontinued Reported Medications Venlafaxine Hcl (EFFEXOR XR) 150 Mg Cap.er.24h, 205 MG PO QDAY 08/27/17 Venlafaxine Hcl (EFFEXOR XR) 75 Mg Cap.er.24h, 75 MG PO QDAY 08/27/17 Discontinued Scripts Prednisone 10 Mg Tab (PREDNISONE 10 MG TAB) 10 Mg Tablet, 20 MG PO BID, #6 TAB Prov:GEORGE BATISTA-BC, ONC 08/20/17 Past Medical/Surgical History Lymphoma Reviewed Nurses Notes: Yes Old Medical Records Reviewed: Yes Hx Smoking: No Smoking Status: Never Smoker Exposure to Second Hand Smoke?: No Hx Substance Use Disorder: No Hx Alcohol Use: Yes Constitutional Vital Sign - Last 24 Hours 08/27/17 08/27/17 08/27/17 08/27/17 18:49 18:51 18:59 19:00 Temp 97.5 Pulse 70 69 Resp 16 17 B/P (MAP) 129/80 129/80 (96) 136/69 (91) Pulse Ox 97 95 O2 Delivery Room Air 08/27/17 08/27/17 08/27/17 08/27/17 19:14 19:20 19:25 22:15 Pulse 74 70 77 Resp 19 12 16 B/P (MAP) 127/86 (100) 127/80 (96) Pulse Ox 95 97 O2 Delivery Room Air Physical Exam Physical exam: Vital signs noted. General: Patient alert [and in no acute distress]. [Does not appear ill]. Skin: [Warm, dry, without rashes, or lesions]. Head: [Normocephalic, atraumatic]. Eye: No injection but obvious icterus. Neck: [Supple, trachea midline]. Cardiovascular: [Regular rate and rhythm without gallops murmurs or rubs. Normal peripheral perfusion with no edema noted]. Respiratory: [Lungs clear to auscultation bilaterally with nonlabored respirations. Breath sounds are equal with symmetric expansion]. Gastrointestinal: Mild right upper quadrant tenderness. No guarding or rebound. Normal bowel sounds. No Perkins's sign.. Musculoskeletal: [Normal range of motion throughout with normal strength. No tenderness, swelling or deformities noted. Moves all extremities equally]. Neurologic: [Patient alert and oriented 4 with no focal neuro deficits cranial nerves II - XII grossly intact. Patient has normal speech] Psychiatric: [Patient is cooperative with appropriate mood and affect] Medical Decision Making Data Points Laboratory Hematology Test 08/27/17 20:27 Urine Color Yellow Urine Clarity Clear Urine pH 5.0 pH (4.8-9.5) Urine Specific [place] 1.004 Urine Protein Negative mg/dL (NEGATIVE) Urine Glucose (UA) Negative mg/dL (NEGATIVE) Urine Ketones Negative mg/dL (NEGATIVE) Urine Blood Negative (NEGATIVE) Urine Nitrite Negative (NEGATIVE) Urine Bilirubin Negative (NEGATIVE) Urine Urobilinogen Negative mg/dL (0.2-1.9) Urine Leukocyte Esterase Negative (NEGATIVE) Urine RBC None /HPF (0-2/HPF) Urine WBC <1 /HPF (0-5/HPF) Urine Squamous Epithelial Cells Few /LPF (</=FEW) Urine Bacteria Negative /HPF (NONE-FEW) Urine Mucus None /HPF (NONE-FEW) Chemistry Test 08/27/17 20:27 Urine Color Yellow Urine Clarity Clear Urine pH 5.0 pH (4.8-9.5) Urine Specific [place] 1.004 Urine Protein Negative mg/dL (NEGATIVE) Urine Glucose (UA) Negative mg/dL (NEGATIVE) Urine Ketones Negative mg/dL (NEGATIVE) Urine Blood Negative (NEGATIVE) Urine Nitrite Negative (NEGATIVE) Urine Bilirubin Negative (NEGATIVE) Urine Urobilinogen Negative mg/dL (0.2-1.9) Urine Leukocyte Esterase Negative (NEGATIVE) Urine RBC None /HPF (0-2/HPF) Urine WBC <1 /HPF (0-5/HPF) Urine Squamous Epithelial Cells Few /LPF (</=FEW) Urine Bacteria Negative /HPF (NONE-FEW) Urine Mucus None /HPF (NONE-FEW) Urinalysis Test 08/27/17 20:27 Urine Color Yellow Urine Clarity Clear Urine pH 5.0 pH (4.8-9.5) Urine Specific [place] 1.004 Urine Protein Negative mg/dL (NEGATIVE) Urine Glucose (UA) Negative mg/dL (NEGATIVE) Urine Ketones Negative mg/dL (NEGATIVE) Urine Blood Negative (NEGATIVE) Urine Nitrite Negative (NEGATIVE) Urine Bilirubin Negative (NEGATIVE) Urine Urobilinogen Negative mg/dL (0.2-1.9) Urine Leukocyte Esterase Negative (NEGATIVE) Urine RBC None /HPF (0-2/HPF) Urine WBC <1 /HPF (0-5/HPF) Urine Squamous Epithelial Cells Few /LPF (</=FEW) Urine Bacteria Negative /HPF (NONE-FEW) Urine Mucus None /HPF (NONE-FEW) EKG/Imaging Imaging Ultrasound of the gallbladder with marked stones, gallbladder wall thickening and dilated common bile duct. Reviewed ultrasound report ED Course/Re-evaluation ED Course Very pleasant 61-year-old female comes in with about 1 week history of nausea and itching. Seen at urgent care for this and given a liter fluids and found to have significant elevated liver enzymes including total bili. Exam here rather reassuring with her only complaint being primarily the itching from her elevated bilirubin. She does have some mild right upper quadrant tenderness but no guarding rebound or surgical signs. She also has no evidence of ascending cholangitis with her white count being normal and she is afebrile. Firstly ultrasound shows that her bilirubin is most likely secondary to obstructive process most likely stones. Her lipase is also mildly elevated. Surprisingly she 's not significant pain or discomfort. Don't think there is any indications for emergent IV antibodies this point time. The patient does need to be admitted and since she has not available here will transfer her to [facility] for GI and she most likely needs an ERCP and further treatment. Did discuss the case with Dr. Herbert in GI and the hospitalist Dr. Lang who accepted patient for admission. Discussed this with patient who expressed understanding and agreement. She did request to go by private vehicle and at this point time I see no reasons why she cannot do that. Believe IV in place and discussed risks and importance of going directly to [facility] for admission. Decision to Disposition Date: Aug 27, 2017 Decision to Disposition Time: 21:52 Depart Departure Latest Vital Signs Vital Signs Date Time Temp Pulse Resp B/P (MAP) Pulse Ox O2 Delivery O2 Flow Rate FiO2 08/27/17 22:15 77 16 127/80 (96) 97 Room Air 08/27/17 18:49 97.5 Impression: Primary Impression: Obstructive jaundice Additional Impression: Biliary colic Condition: Improved Disposition: XFER TO ACUTE CARE HOSPITAL Referrals: ANT GARCIA (PCP) Problem Qualifiers FREDDIE LAKE MD Aug 27, 2017 19:09
[2017-08-27] MEDS ORDERED: FLUSH 10 ML SYR IV ONE (19:30)
[2017-08-27] MEDS ORDERED: ONDANSETRON 4 MG/2 ML VIAL IVP ONE (19:45)
--- NOTE | 2017-08-27 20:55 | RADIOLOGY IMAGING REPORT ---
[place] [facility] [place] NAME: Annette Jordan : 1955 MR: [id number] V: [id number] EXAM DATE: ORDERING PHYSICIAN: FREDDIE LAKE TECHNOLOGIST: [place] [facility] [place] Annette [place] : 1955 Visit/Account:[id number] Date of Sevice: 08/27/2017 INDICATION: RUQ ABD PAIN, JAUNDICE, HX OF LYMPHOMA. DATE: 08/27/2017 8:42 PM. TECHNIQUE: Grayscale and color ultrasound imaging was performed of the abdomen with attention to the gallbladder. COMPARISON: CT chest abdomen and pelvis August 02, 2009. FINDINGS: The pancreas is obscured. The aorta and IVC appear patent within the imaged region. The right lobe of the liver measures 14 cm. Echogenicity is similar to that of the right renal cortex . No ascites. The contents of the gallbladder casting a large shadow. Gallbladder wall is mildly thickened at 4 mm. The mainspring winder and oiler reports a negative sonographic Perkins's sign. The common bile duct appears quite dil ated measuring just under 17 mm. The right kidney measures 11.6 x 4.9 x 4.8 cm with normal cortical thickness and echogenicity. The le ft kidney was not imaged. IMPRESSION: 1. The gallbladder appears filled with shadowing stones. The gallbladder wall is thickened. The findi ngs can be seen with but are not diagnostic of cholecystitis. 2. Prominent dilation of the common bile duct may reflect downstream obstruction either by mass or st one. Report Dictated By: Ofelia Tomas MD at 08/27/2017 8:42 PM Report E-Signed By: Ofelia Tomas MD at 08/27/2017 8:50 PM WSN:[id number]
[2017-08-27] MEDS ORDERED: diphenhydrAMINE 50 MG/ML VIAL IVP ONE (22:05)
[2017-08-27 22:15] VITALS: BP 127/80
== END 2017-08-27 22:18 | disposition short-term general hospital (02) ==
LOC: ER 19:11
DX: K80.51 Calculus of bile duct without cholangitis or cholecystitis with obstruction (principal)
CPT/HCPCS: 76705; 81001; 96374; 96375; 99285; J1200; J2405

== ENCOUNTER → 2017-08-27 | Outpatient (REF) | payer BC ==
[~2017-08-27] MED LIST changes: -ACETAMINOPHEN 325 MG TAB PO PRN; -ALTEPLASE RECOMB 2 MG VIAL IVP PRN; -DEXTROSE 5%(*) 100 ML BAG 100 ML IVPB PRN; -MEPERIDINE 50 MG/ML SYR IVP PRN; +PRED-1 PO; +VENL150C61 PO; +VENL75CA58 PO; -WATER STERILE 10 ML VIAL IVP PRN; -[UNRECOGNIZED DRUG - MIXTURE] IV ONE; -[UNRECOGNIZED DRUG - MIXTURE] IV ONE; -diphenhydrAMINE 25 MG CAP PO PRN; -riTUXimab 500 MG/50 ML SDV 900 MG in NS(*) 0.9% 1000 ML BAG 810 ML IV ONE
[2017-08-27 18:17] LABS: PLATELET COUNT, AUTOMATED 232 K/uL (150-450)
[2017-08-27 18:38] LABS: INR 0.86
== END ==
LOC: ZZSTITCHES 17:33
PROVIDERS: ATTEND Physician Assistant
DX: R17 Unspecified jaundice (principal); R10.811 Right upper quadrant abdominal tenderness
CPT/HCPCS: 82040; 82247; 82310; 82374; 82435; 82565; 82947; 83690; 84075; 84132; 84155; 84295; 84450; 84460; 84520; 85025; 85610; 85730

== ENCOUNTER → 2017-09-12 | Outpatient (CLI) | payer BC ==
[~2017-09-12] MED LIST changes: +VENL150C61 PO; +VENL75CA58 PO
[2017-09-12 16:02] VITALS: BP 122/72
== END ==
LOC: SPU 15:01
PROVIDERS: ATTEND Surgery
DX: D64.9 Anemia, unspecified (principal)
CPT/HCPCS: 36415; 85027

== ENCOUNTER 2017-12-31 12:00 | Outpatient (RCR) | payer BC ==
[2017-10-08 12:59] LABS: PLATELET COUNT, AUTOMATED 304 K/uL (150-450)
[2017-10-08] MEDS: LIDOCAINE/SOD BICARB 8.4% SYR ID PRN (13:00)
[2017-10-12 08:41] LABS: PLATELET COUNT, AUTOMATED 250 K/uL (150-450)
[2017-10-12] MEDS: NS(*) 0.9% 500 ML BAG 500 ML IV PRN (09:00)
[2017-10-12] MEDS: diphenhydrAMINE 25 MG CAP PO PRN (09:08)
[2017-10-12] MEDS: ACETAMINOPHEN 325 MG TAB PO PRN (09:08)
[2017-11-01 16:37] VITALS: BP 112/74
--- NOTE | 2017-11-01 20:47 | ONCOLOGY FOLLOW UP NOTE ---
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 CHIEF COMPLAINT The patient is here today for cycle number eight of maintenance rituximab therapy for her recurrent follicular lymphoma of the right parotid gland. ONCOLOGY HISTORY The patient is a 61-year-old female who was diagnosed with follicular lymphoma, stage IV, grade I, with translocation 14;18 and complex cytogenetics in September 2008. The patient received chemotherapy with six cycles of R-CHOP with rituximab, cyclophosphamide, doxorubicin, vincristine and prednisone, received between September 2008 through January 2009. Her treatment was followed by two courses of maintenance rituximab therapy weekly for four weeks, given in July 2009 and January 2010. The patient was put in remission since then. She presented recently with right parotid gland swelling. She had a CT of soft tissue of neck done on December 28, [address] report showed two well- circumscribed hypo-attenuating homogeneous enhancing masses in the right parotid gland. The smaller of the two may represent an intraparotid lymph node while the larger of the two measures 1.6 cm in diameter. The patient ended by having excisional biopsy of the right parotid lymph node done on January 11, 2016, and the pathology came back positive for CD10 positive clonal B-cell population 14.2% of the sample with predominantly intermediate/mixed cell size, and the pathology was consistent with low grade follicular lymphoma, grade I to II, with increased proliferation index, and her Ki-67 was positive 30 to 70%, average 50%. 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 Bone marrow aspiration biopsy done on January 25, 2016 came back negative for lymphomatous involvement. PET/CT scan done on February 07, 2016 showed a new 8 mm nodule within the anterior aspect of the right parotid gland with SUV 3.2. No distant metastatic disease. There is chronic mucosal thickening within the right maxillary sinus with SUV 4.6, likely inflammatory. The patient started treatment with Rituximab and bendamustine on February 10, 2016. The patient started chemotherapy with rituximab and bendamustine on February 10, 2016. The patient received four courses of rituximab and bendamustine completed on May 05, 2016. She started maintenance rituximab therapy on July 18, 2016. HISTORY OF PRESENT ILLNESS Patient is here today for cycle number eight of maintenance rituximab therapy for her recurrent follicular lymphoma. She is doing fine currently except some fatigue after her recent cholecystectomy with bleeding after surgery and patient required blood transfusion for that, but she is doing better currently. PAST MEDICAL HISTORY History of stage IV follicular lymphoma, diagnosed September 2008, with recurrence in the right parotid area in December 2015. PAST SURGICAL HISTORY 1. in July 2000 and July 1997. 2. Removal of hematoma of the left lower leg, September 1992. 3. Tonsillectomy as a child. FAMILY HISTORY Maternal grandmother had bone cancer. Mother had uterine cancer. SOCIAL HISTORY The patient is with two daughters. She works as a teacher. She drinks occasionally like one beer per month. Denies any abuse of tobacco or illicit drugs. CURRENT MEDICATIONS 1. Celexa 10 mg daily. 2. Effexor 225 mg daily. ALLERGIES PENICILLIN; she does not know the reaction. REVIEW OF SYSTEMS CONSTITUTIONAL: The patient has fever. HEENT: Ears: No tinnitus or hearing problem. Nose: The patient has nasal discharge and she is sneezing also. Throat: No sore throat or mouth ulcers. Eyes: No diplopia or visual changes. RESPIRATORY: She has cough with expectoration and shortness of breath. CARDIOVASCULAR: No chest pain, orthopnea, or paroxysmal nocturnal dyspnea (PND) . No edema. No palpitations. GASTROINTESTINAL: No nausea or vomiting. No diarrhea or constipation. No change in bowel movements. No heartburn or swallowing difficulties. No abdominal pain. No jaundice. No hematemesis, melena or rectal bleeding. GENITOURINARY: She has recent urinary tract infection, treated with Bactrim. MUSCULOSKELETAL: She has pain in the right hip. NEUROLOGICAL: No tingling or numbness in the hands or feet. No headaches or convulsions. HEMATOLOGIC/LYMPHATIC: She is weak, tired and fatigued. SKIN: No skin rash or lumps. PSYCHIATRIC: No anxiety or depression. PHYSICAL EXAMINATION GENERAL: Looks stable. Well-developed, well-nourished, and in no acute distress. VITAL SIGNS: Blood pressure 112/74, pulse 78 per minute, respirations 16 per minute, temperature 97, pulse ox 91% on room air. HEENT: Head: Atraumatic. No sinus tenderness to palpation. Eyes: No icterus or conjunctivitis. Mouth and throat: No oral thrush or mucositis. NECK: The mass in the right parotid is getting smaller compared to her last visit. LUNGS: Clear to auscultation and percussion bilaterally. HEART: Regular rate and rhythm. No gallops, murmurs, clicks or rubs. ABDOMEN: Soft and lax. No tenderness. No hepatosplenomegaly. No masses. EXTREMITIES: No cyanosis, clubbing or edema. LYMPHATICS: No peripheral lymphadenopathy. NEUROLOGICAL: Conscious, alert and oriented times three. No focal motor or sensory deficits. PSYCHIATRIC: Mood and affect appear normal. SKIN: No skin rash, bruise or purpuric eruption. DIAGNOSTIC DATA CBC showed a white count of 3.6, hemoglobin 13.5, hematocrit 36.6, platelets 250 ,000. Chem panel totally normal except blood sugar 120, AST 37, alkaline phosphatase 138. ASSESSMENT 1. Recurrent follicular lymphoma grade 1 with involvement of the right parotid gland. Patient initially diagnosed September 2008 with stage IV grade 1 follicular lymphoma with translocation (14,18) and complex cytogenetics. She was treated with six cycles of R-CHOP between September 2008 through January 2009 for six cycles, and the patient was put into complete remission after that. She received two courses of maintenance rituximab therapy for four weeks each course. She received the first course of maintenance rituximab therapy in July of 2009 and the second course in January 2010. She presented with a mass in the right parotid gland, and excisional biopsy of the right parotid lymph node January 11, 2016 came back positive for low-grade follicular lymphoma grade 1-2. Ki-67 was high between 30% to 70%, average 50%. Cytogenetic analysis showed multiple chromosomal abnormalities. Patient received four courses of rituximab and bendamustine between February 10, 2016 through May 05, 2016. She started maintenance rituximab therapy July 18, 2016. She finished seven courses so far, and I am planning to proceed with her eighth course which was delayed because of her cholecystectomy done recently. I am planning to proceed with her eighth cycle of maintenance rituximab therapy this time. I will see her in two months prior to the next dose of rituximab with CBC , chem panel, LDH, and uric acid. 2. Hypogammaglobulinemia, currently on IVIG 0.5 g/kg every month with improvement of her recurrent upper respiratory tract infection. I am planning to continue IVIG therapy until the patient will finish her rituximab. PLAN 1. Rituximab. This will be cycle number eight. 2. Patient to return in two months with CBC, chem panel, LDH, uric acid. 3. CBC, chem panel to be checked monthly prior to IVIG therapy. 4. Patient to contact us for any new concerns or complaints. YANETH
[2017-11-05] MEDS: NS(*) 0.9% 100 ML BAG 100 ML IVPB PRN (13:06)
[2017-11-05] MEDS: LIDOCAINE/SOD BICARB 8.4% SYR ID PRN (13:06)
[2017-11-05] MEDS: HEPARIN FLSH (PORT) 500 UN/5ML IVP PRN (13:07)
[2017-12-07 09:11] VITALS: BP 104/69
[2017-12-07] MEDS: LIDOCAINE/SOD BICARB 8.4% SYR ID PRN (09:13)
[2017-12-07] MEDS: NS(*) 0.9% 100 ML BAG 100 ML IVPB PRN (09:14)
[2017-12-07] MEDS: HEPARIN FLSH (PORT) 500 UN/5ML IVP PRN (13:00)
[2017-12-13 11:38] VITALS: BP 117/76
[2017-12-13] MEDS: diphenhydrAMINE 25 MG CAP PO PRN (11:51)
[2017-12-13] MEDS: ACETAMINOPHEN 325 MG TAB PO PRN (11:51)
[2017-12-13] MEDS: NS(*) 0.9% 500 ML BAG 500 ML IV PRN (11:58)
[2017-12-13] MEDS: LIDOCAINE/SOD BICARB 8.4% SYR ID PRN (11:58)
[2017-12-13] MEDS: HEPARIN FLSH (PORT) 500 UN/5ML IVP PRN (11:58)
[2017-12-13 15:17] VITALS: BP 117/83
[~2017-12-31] VITALS: Ht 174 cm; Wt 116.3 kg
[~2017-12-31 12:00] MED LIST changes: +ALTEPLASE RECOMB 2 MG VIAL IVP PRN; +DEXTROSE 5%(*) 100 ML BAG 100 ML IVPB PRN; +RITUXIMAB IV ONE; +WATER FOR INJ,STERILE 20 ML IVP PRN; +[UNRECOGNIZED DRUG - MIXTURE] IV ONE; +[UNRECOGNIZED DRUG - MIXTURE] IV ONE; +[UNRECOGNIZED DRUG - OTHER] IV ONE
[2017-12-31 12:34] VITALS: BP 126/76
[2017-12-31] MEDS: NS(*) 0.9% 500 ML BAG 500 ML IV PRN (12:36)
[2017-12-31] MEDS: LIDOCAINE/SOD BICARB 8.4% SYR ID PRN (12:36)
[2017-12-31 12:37] LABS: PLATELET COUNT, AUTOMATED 208 K/uL (150-450)
[2017-12-31] MEDS ORDERED: [UNRECOGNIZED DRUG - MIXTURE] IV ONE (13:00)
== END 2018-01-06 ==
LOC: SPU 12:00
PROVIDERS: ATTEND Internal Medicine Hematology
DX: C82.50 Diffuse follicle center lymphoma, unspecified site (principal); R53.83 Other fatigue; D80.1 Nonfamilial hypogammaglobulinemia; Z92.21 Personal history of antineoplastic chemotherapy; R53.1 Weakness
CPT/HCPCS: 83615; 84550; 85025; 85027; 96365; 96366; 96413; 96415; 99212; J1459; J1642; J7030; J7040; J7050; J9310; Q0163; 82040; 82247; 82310; 82374; 82435; 82565; 82947; 84075; 84132; 84155; 84295; 84450; 84460; 84520

== ENCOUNTER 2018-04-04 11:30 | Outpatient (RCR) | payer BC ==
[2018-02-01 13:09] LABS: PLATELET COUNT, AUTOMATED 215 K/uL (150-450)
[2018-02-01] MEDS: HEPARIN FLSH (PORT) 500 UN/5ML IVP PRN (13:35)
[2018-02-01] MEDS: LIDOCAINE/SOD BICARB 8.4% SYR ID PRN (13:35)
[2018-02-01 17:00] VITALS: BP 140/85
[2018-02-01 17:07] VITALS: BP 131/74
--- NOTE | 2018-02-01 18:28 | ONCOLOGY FOLLOW UP NOTE ---
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 CHIEF COMPLAINT The patient is here today for cycle number nine of maintenance rituximab therapy for her recurrent follicular lymphoma of the right parotid gland. ONCOLOGY HISTORY The patient is a 62-year-old female who was diagnosed with follicular lymphoma, stage IV, grade I, with translocation 14;18 and complex cytogenetics in September 2008. The patient received chemotherapy with six cycles of R-CHOP with rituximab, cyclophosphamide, doxorubicin, vincristine and prednisone, received between September 2008 through January 2009. Her treatment was followed by two courses of maintenance rituximab therapy weekly for four weeks, given in July 2009 and January 2010. The patient was put in remission since then. She presented recently with right parotid gland swelling. She had a CT of soft tissue of neck done on December 28, [address] report showed two well- circumscribed hypo-attenuating homogeneous enhancing masses in the right parotid gland. The smaller of the two may represent an intraparotid lymph node while the larger of the two measures 1.6 cm in diameter. The patient ended by having excisional biopsy of the right parotid lymph node done on January 11, 2016, and the pathology came back positive for CD10 positive clonal B-cell population 14.2% of the sample with predominantly intermediate/mixed cell size, and the pathology was consistent with low grade follicular lymphoma, grade I to II, with increased proliferation index, and her Ki-67 was positive 30 to 70%, average 50%. 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 Bone marrow aspiration biopsy done on January 25, 2016 came back negative for lymphomatous involvement. PET/CT scan done on February 07, 2016 showed a new 8 mm nodule within the anterior aspect of the right parotid gland with SUV 3.2. No distant metastatic disease. There is chronic mucosal thickening within the right maxillary sinus with SUV 4.6, likely inflammatory. The patient started treatment with Rituximab and bendamustine on February 10, 2016. The patient started chemotherapy with rituximab and bendamustine on February 10, 2016. The patient received four courses of rituximab and bendamustine completed on May 05, 2016. She started maintenance rituximab therapy on July 18, 2016. HISTORY OF PRESENT ILLNESS Patient is here today for cycle number nine of maintenance rituximab therapy for her recurrent follicular lymphoma of the right parotid. She is doing fine currently except for worsening hot flashes. She has occasional nausea. She has alternating diarrhea and constipation. She has pain in her hips. She is weak, tired and fatigued. PAST MEDICAL HISTORY History of stage IV follicular lymphoma, diagnosed September 2008, with recurrence in the right parotid area in December 2015. PAST SURGICAL HISTORY 1. in July 2000 and July 1997. 2. Removal of hematoma of the left lower leg, September 1992. 3. Tonsillectomy as a child. FAMILY HISTORY Maternal grandmother had bone cancer. Mother had uterine cancer. SOCIAL HISTORY The patient is with two daughters. She works as a teacher. She drinks occasionally like one beer per month. Denies any abuse of tobacco or illicit drugs. CURRENT MEDICATIONS 1. Celexa 10 mg daily. 2. Effexor 225 mg daily. ALLERGIES PENICILLIN; she does not know the reaction. REVIEW OF SYSTEMS CONSTITUTIONAL: The patient has hot flashes. HEENT: Ears: No tinnitus or hearing problem. Nose: The patient has nasal discharge and she is sneezing also. Throat: No sore throat or mouth ulcers. Eyes: No diplopia or visual changes. RESPIRATORY: She has cough with expectoration and shortness of breath. CARDIOVASCULAR: No chest pain, orthopnea, or paroxysmal nocturnal dyspnea (PND) . No edema. No palpitations. GASTROINTESTINAL: She has occasional nausea and alternating diarrhea and constipation. No heartburn or swallowing difficulties. No abdominal pain. No jaundice. No hematemesis, melena or rectal bleeding. GENITOURINARY: She has recent urinary tract infection, treated with Bactrim. MUSCULOSKELETAL: She has pain in her hips. NEUROLOGICAL: No tingling or numbness in the hands or feet. No headaches or convulsions. HEMATOLOGIC/LYMPHATIC: She is weak, tired and fatigued. SKIN: No skin rash or lumps. PSYCHIATRIC: No anxiety or depression. PHYSICAL EXAMINATION GENERAL: Looks stable. Well-developed, well-nourished, and in no acute distress. VITAL SIGNS: Blood pressure 117/69, pulse 81 per minute, respirations 16 per minute, temperature 98.2, pulse ox 93% on room air. HEENT: Head: Atraumatic. No sinus tenderness to palpation. Eyes: No icterus or conjunctivitis. Mouth and throat: No oral thrush or mucositis. NECK: The mass in the right parotid is getting smaller compared to her last visit. LUNGS: Clear to auscultation and percussion bilaterally. HEART: Regular rate and rhythm. No gallops, murmurs, clicks or rubs. ABDOMEN: Soft and lax. No tenderness. No hepatosplenomegaly. No masses. EXTREMITIES: No cyanosis, clubbing or edema. LYMPHATICS: No peripheral lymphadenopathy. NEUROLOGICAL: Conscious, alert and oriented times three. No focal motor or sensory deficits. PSYCHIATRIC: Mood and affect appear normal. SKIN: No skin rash, bruise or purpuric eruption. DIAGNOSTIC DATA Still pending. ASSESSMENT 1. Recurrent follicular lymphoma grade 1 with involvement of the right parotid gland. Patient initially diagnosed September 2008 with stage IV grade 1 follicular lymphoma with translocation (14,18) and complex cytogenetics. Patient treated at that time with six cycles of R-CHOP between September 2008 through January 2009 for six cycles, and the patient was put into complete remission after that. She received two courses of maintenance rituximab therapy for four weeks each course. She received the first course of maintenance rituximab therapy in July of 2009 and the second course in January 2010. She presented with a mass in the right parotid gland, and excisional biopsy of the right parotid lymph node January 11, 2016 came back positive for low-grade follicular lymphoma grade 1-2. Ki-67 was high between 30 % to 70%, average 50%. Cytogenetic analysis showed multiple chromosomal abnormalities. Patient received four courses of rituximab and bendamustine between February 10, 2016 through May 05, 2016. She started maintenance rituximab therapy July 18, 2016. She finished eight courses so far, and I am planning to proceed with her ninth course today. I will see her again in two months prior to her tenth dose of rituximab maintenance therapy with CBC, chem panel, LDH and uric acid. 2. Hypogammaglobulinemia. Patient receives IVIG 0.5 g/kg at monthly intervals for her recurrent upper respiratory infections. PLAN 1. Rituximab. This will be cycle number nine. 2. Patient to return in two months with CBC, chem panel, LDH, uric acid. 3. Patient to contact us for any new concerns or complaints. MTDD
[~2018-04-04] VITALS: Ht 174 cm; Wt 116.9 kg
[~2018-04-04 11:30] MED LIST changes: +NS(*) 0.9% 100 ML BAG 100 ML IVPB PRN; +NS(*) 0.9% 500 ML BAG 500 ML IV PRN; -[UNRECOGNIZED DRUG - MIXTURE] IV ONE; -[UNRECOGNIZED DRUG - MIXTURE] IV ONE
[2018-04-04 12:17] VITALS: BP 119/77
[2018-04-04] MEDS: LIDOCAINE/SOD BICARB 8.4% SYR ID PRN (12:35)
[2018-04-04] MEDS ORDERED: RITUXIMAB IV ONE (13:10)
[2018-04-04] MEDS ORDERED: ACETAMINOPHEN 325 MG TAB PO PRN (13:10)
[2018-04-04] MEDS ORDERED: [UNRECOGNIZED DRUG - OTHER] IV ONE (13:10)
[2018-04-04] MEDS ORDERED: diphenhydrAMINE 25 MG CAP PO PRN (13:10)
[2018-04-04] MEDS: HEPARIN FLSH (PORT) 500 UN/5ML IVP PRN (16:41)
[2018-04-04 16:44] VITALS: BP 113/73
== END 2018-05-01 ==
LOC: SPU 11:30
PROVIDERS: ATTEND Internal Medicine Hematology
DX: C82.50 Diffuse follicle center lymphoma, unspecified site (principal); R53.83 Other fatigue; D80.1 Nonfamilial hypogammaglobulinemia; Z92.21 Personal history of antineoplastic chemotherapy; R53.1 Weakness
CPT/HCPCS: 83615; 84550; 85025; 85027; 96413; 96415; J1642; J7030; J7040; J7050; J9310; Q0163; 82040; 82247; 82310; 82374; 82435; 82565; 82947; 84075; 84132; 84155; 84295; 84450; 84460; 84520

== ENCOUNTER 2018-06-06 12:00 | Outpatient (RCR) | payer BC ==
[~2018-06-06] VITALS: Ht 174 cm; Wt 117.8 kg
[~2018-06-06 12:00] MED LIST changes: +HEPARIN FLSH (PORT) 500 UN/5ML IVP PRN; +LIDOCAINE/SOD BICARB 8.4% SYR ID PRN; -RITUXIMAB IV ONE; -[UNRECOGNIZED DRUG - OTHER] IV ONE
[2018-06-06 13:05] VITALS: BP 110/78
[2018-06-06] MEDS ORDERED: ACETAMINOPHEN 325 MG TAB PO PRN (13:50)
[2018-06-06] MEDS ORDERED: diphenhydrAMINE 25 MG CAP PO PRN (13:50)
[2018-06-06] MEDS ORDERED: riTUXimab 500 MG/50 ML SDV 900 MG in NS(*) 0.9% 1000 ML BAG 810 ML IV ONE (14:15)
[2018-06-06 17:12] VITALS: BP 120/78
--- NOTE | 2018-06-06 23:12 | [facility] ONCOLOGY NOTE ---
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 CHIEF COMPLAINT The patient is here today for her cycle #12 of maintenance rituximab therapy for her recurrent follicular lymphoma of the right parotid gland. ONCOLOGY HISTORY The patient is a 62-year-old female who was diagnosed with follicular lymphoma, stage IV, grade 1, with translocation 14;18 and complex cytogenetics in September 2008. The patient received chemotherapy with six cycles of R-CHOP with rituximab, cyclophosphamide, doxorubicin, vincristine and prednisone, received between September 2008 through January 2009. Her treatment was followed by two courses of maintenance rituximab therapy weekly for four weeks, given in July 2009 and January 2010. The patient was put in remission since then. She presented recently with right parotid gland swelling. She had a CT of soft tissue of neck done on December 28, 2015, and the CT report showed two well- circumscribed hypo-attenuating homogeneous enhancing masses in the right parotid gland. The smaller of the two may represent an intraparotid lymph node while the larger of the two measures 1.6 cm in diameter. The patient ended by having excisional biopsy of the right parotid lymph node done on January 11, 2016, and the pathology came back positive for CD10 positive clonal B-cell population 14.2% of the sample with predominantly intermediate/mixed cell size, and the pathology was consistent with low grade follicular lymphoma, grade I to II, with increased proliferation index, and her Ki-67 was positive 30 to 70%, average 50%. Cytogenetic analysis of the right parotid biopsy done on January 11, 2016 showed multiple chromosomal abnormalities with 43-51 XX trisomy 5, i(6), (P10, +11, - 13), t(14;18) trisomy 21+. Bone marrow aspiration biopsy done on January 25, 2016 came back negative for lymphomatous involvement. PET/CT scan done on February 07, 2016, showed a new 8 mm nodule within the anterior aspect of the right parotid gland with SUV 3.2. No distant metastatic disease. There is chronic mucosal thickening within the right maxillary sinus with SUV 4.6, likely inflammatory. The patient started treatment with Rituximab and bendamustine on February 10, 2016. The patient started chemotherapy with rituximab and bendamustine on February 10, 2016. The patient received four courses of rituximab and bendamustine completed on May 05, 2016. She started maintenance rituximab therapy on July 18, 2016. The patient completed 12 courses of maintenance rituximab therapy on 06 June 2018. HISTORY OF PRESENT ILLNESS Patient is here today for her cycle #12 of maintenance rituximab therapy for her recurrent follicular lymphoma of the right parotid. She is doing fine currently. She is complaining of some repeated episodes of attacks of funny feeling with dizziness and tingling in the fingers, palpitations, and pain in the shoulders, which has stayed for nearly half an hour. Other than that, she is totally asymptomatic. She denies any B symptoms. PAST MEDICAL HISTORY History of stage IV follicular lymphoma, diagnosed September 2008, with recurrence in the right parotid area in December 2015. PAST SURGICAL HISTORY 1. in July 2000 and July 1997. 2. Removal of hematoma of the left lower leg, September 1992. 3. Tonsillectomy as a child. FAMILY HISTORY Maternal grandmother had bone cancer. Mother had uterine cancer. SOCIAL HISTORY The patient is with two daughters. She works as a teacher. She drinks occasionally like one beer per month. Denies any abuse of tobacco or illicit drugs. CURRENT MEDICATIONS 1. Celexa 10 mg daily. 2. Effexor 225 mg daily. ALLERGIES PENICILLIN; she does not know the reaction. REVIEW OF SYSTEMS CONSTITUTIONAL: No appetite or weight change. No fever, chills or sweating. No recent infection. HEENT: Ears: No tinnitus or hearing problem. Nose: No nasal discharge or epistaxis. Throat: No sore throat or mouth ulcers. Eyes: No diplopia or visual changes. RESPIRATORY: No shortness of breath. No cough, expectoration or hemoptysis. CARDIOVASCULAR: No chest pain, orthopnea, or paroxysmal nocturnal dyspnea (PND). No edema. No palpitations. GASTROINTESTINAL: No nausea or vomiting. No diarrhea or constipation. No change in bowel movements. No heartburn or swallowing difficulties. No abdominal pain. No jaundice. No hematemesis, melena or rectal bleeding. GENITOURINARY: No hematuria or dysuria. MUSCULOSKELETAL: No pain in the muscles, joints or bones. NEUROLOGICAL: Patient has funny attacks associated with dizziness, tingling of the fingers, palpitations, and pain in the shoulders. HEMATOLOGIC/LYMPHATIC: No bleeding or easy bruising. No weakness or fatigued. No enlarged lymph nodes. SKIN: No skin rash or lumps. PSYCHIATRIC: No anxiety or depression. PHYSICAL EXAMINATION GENERAL: Looks stable. Well-developed, well-nourished, and in no acute distress. VITAL SIGNS: Blood pressure 110/78, pulse 75 per minute, respirations 17 per minute, temperature 97.4, pulse oximetry 91% on room air. HEENT: Head: Atraumatic. No sinus tenderness to palpation. Eyes: No icterus or conjunctivitis. Mouth and throat: No oral thrush or mucositis. NECK: Supple. No cervical or supraclavicular lymphadenopathy. LUNGS: Clear to auscultation and percussion bilaterally. HEART: Regular rate and rhythm. No gallops, murmurs, clicks or rubs. ABDOMEN: Soft and lax. No tenderness. No hepatosplenomegaly. No masses. EXTREMITIES: No cyanosis, clubbing or edema. LYMPHATICS: No peripheral lymphadenopathy. NEUROLOGICAL: Conscious, alert and oriented times three. No focal motor or sensory deficits. PSYCHIATRIC: Mood and affect appear normal. SKIN: No skin rash, bruise or purpuric eruption. DIAGNOSTIC DATA CBC showed a white count of 5.3, hemoglobin 15.5, hematocrit 44.9, platelet 226,000. Chem panel totally normal except blood sugar 113, BUN 20, sodium 136; other parameters are normal. ASSESSMENT 1. Recurrent follicular lymphoma, grade 1, with involvement of the right parotid gland. Patient initially diagnosed September 2008 with stage IV grade 1 follicular lymphoma with translocation (14,18) and complex cytogenetics. Patient treated at that time with six cycles of R-CHOP between September 2008 through January 2009 for six cycles, and the patient was put into complete remission after that. She received two courses of maintenance rituximab therapy for four weeks each course. She received the first course of maintenance rituximab therapy in July 2009 and the second course in January 2010. She presented with a mass in the right parotid gland, and excisional biopsy of the right parotid lymph node January 11, 2016, came back positive for low-grade follicular lymphoma grade 1-2. Ki-67 was high between 30% to 70%, average 50%. Cytogenetic analysis showed multiple chromosomal abnormalities. Patient received four courses of rituximab and bendamustine between February 10, 2016, through May 05, 2016. She started maintenance rituximab therapy July 18, 2016. She finished 11 courses, and she is due today, 06 June 2018, for her twelfth and last cycle of maintenance rituximab therapy. I am planning to proceed with her rituximab therapy. I will see her again in three months with CBC, chem panel, LDH, and uric acid. 2. Hypogammaglobulinemia. Patient received IVIG 0.5 g/kg at monthly intervals for recurrent upper respiratory infections. I am hoping after stopping rituximab, her immunoglobulin levels will be better. PLAN 1. Rituximab. This will be cycle #12. 2. Patient to return in three months with CBC, chem panel, LDH, uric acid. 3. Patient to contact us for any new concerns or complaints. MTDD
== END 2018-06-26 14:11 | disposition home or self-care (01) ==
LOC: ONC 12:00
PROVIDERS: ATTEND Internal Medicine Hematology
DX: Z51.11 Encounter for antineoplastic chemotherapy (principal); C82.50 Diffuse follicle center lymphoma, unspecified site; D80.1 Nonfamilial hypogammaglobulinemia; Z92.21 Personal history of antineoplastic chemotherapy; R53.1 Weakness; R53.83 Other fatigue
CPT/HCPCS: 85027; 96413; 96415; J1642; J7030; J7040; J9310; Q0163; 82040; 82247; 82310; 82374; 82435; 82565; 82947; 84075; 84132; 84155; 84295; 84450; 84460; 84520

== ENCOUNTER 2018-11-20 12:00 | Outpatient (RCR) | payer BC ==
[2018-09-24] MEDS: HEPARIN FLSH (PORT) 500 UN/5ML IVP PRN (16:42)
[2018-09-24] MEDS: LIDOCAINE/SOD BICARB 8.4% SYR ID PRN (16:42)
[2018-09-24 16:44] LABS: PLATELET COUNT, AUTOMATED 216 K/uL (150-450)
[2018-09-26 15:36] VITALS: BP 119/83
--- NOTE | 2018-09-27 03:00 | [facility] ONCOLOGY NOTE ---
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 CHIEF COMPLAINT The patient is here today for her recurrent follicular lymphoma of the right parotid gland. ONCOLOGY HISTORY The patient is a 62-year-old female who was diagnosed with follicular lymphoma, stage IV, grade 1, with translocation 14;18 and complex cytogenetics in September 2008. The patient received chemotherapy with six cycles of R-CHOP with rituximab, cyclophosphamide, doxorubicin, vincristine and prednisone, received between September 2008 through January 2009. Her treatment was followed by two courses of maintenance rituximab therapy weekly for four weeks, given in July 2009 and January 2010. The patient was put in remission since then. She presented recently with right parotid gland swelling. She had a CT of soft tissue of neck done on December 28, 2015, and the CT report showed two well- circumscribed hypo-attenuating homogeneous enhancing masses in the right parotid gland. The smaller of the two may represent an intraparotid lymph node while the larger of the two measures 1.6 cm in diameter. The patient ended by having excisional biopsy of the right parotid lymph node done on January 11, 2016, and the pathology came back positive for CD10 positive clonal B-cell population 14.2% of the sample with predominantly intermediate/mixed cell size, and the pathology was consistent with low grade follicular lymphoma, grade I to II, with increased proliferation index, and her Ki-67 was positive 30 to 70%, average 50%. Cytogenetic analysis of the right parotid biopsy done on January 11, 2016 showed multiple chromosomal abnormalities with 43-51 XX trisomy 5, i(6), (P10, +11, - 13), t(14;18) trisomy 21+. Bone marrow aspiration biopsy done on January 25, 2016 came back negative for lymphomatous involvement. PET/CT scan done on February 07, 2016, showed a new 8 mm nodule within the anterior aspect of the right parotid gland with SUV 3.2. No distant metastatic disease. There is chronic mucosal thickening within the right maxillary sinus with SUV 4.6, likely inflammatory. The patient started treatment with Rituximab and bendamustine on February 10, 2016. The patient started chemotherapy with rituximab and bendamustine on February 10, 2016. The patient received four courses of rituximab and bendamustine completed on May 05, 2016. She started maintenance rituximab therapy on July 18, 2016. The patient completed 12 courses of maintenance rituximab therapy on 06 June 2018. HISTORY OF PRESENT ILLNESS Patient is here today for followup of her recurrent follicular lymphoma of the right parotid. She is feeling very weak, tired, and fatigued. She has aches here and there from age in her body. She is currently receiving nitrofurantoin for UTI. She has some sweating at night. She has nasal discharge and occasional nasal bleeds, but she has sinus infection since June 2018 without improvement. PAST MEDICAL HISTORY History of stage IV follicular lymphoma, diagnosed September 2008, with recurrence in the right parotid area in December 2015. PAST SURGICAL HISTORY 1. in July 2000 and July 1997. 2. Removal of hematoma of the left lower leg, September 1992. 3. Tonsillectomy as a child. FAMILY HISTORY Maternal grandmother had bone cancer. Mother had uterine cancer. SOCIAL HISTORY The patient is with two daughters. She works as a teacher. She drinks occasionally like one beer per month. Denies any abuse of tobacco or illicit drugs. CURRENT MEDICATIONS 1. Celexa 10 mg daily. 2. Effexor 225 mg daily. ALLERGIES PENICILLIN; she does not know the reaction. REVIEW OF SYSTEMS CONSTITUTIONAL: She has night sweats. HEENT: Ears: No tinnitus or hearing problem. Nose: She has runny and bloody nose, and she has had sinus infection since June 2018. Throat: No sore throat or mouth ulcers. Eyes: No diplopia or visual changes. RESPIRATORY: No shortness of breath. No cough, expectoration or hemoptysis. CARDIOVASCULAR: No chest pain, orthopnea, or paroxysmal nocturnal dyspnea (PND). No edema. No palpitations. GASTROINTESTINAL: No nausea or vomiting. No diarrhea or constipation. No change in bowel movements. No heartburn or swallowing difficulties. No abdominal pain. No jaundice. No hematemesis, melena or rectal bleeding. GENITOURINARY: She is currently on nitrofurantoin for urinary tract infection. MUSCULOSKELETAL: She has aches here and there. NEUROLOGICAL: No tingling or numbness in the hands or feet. No headaches or convulsions. HEMATOLOGIC/LYMPHATIC: She is weak ,tired, and fatigued. SKIN: No skin rash or lumps. PSYCHIATRIC: No anxiety or depression. PHYSICAL EXAMINATION GENERAL: Looks stable. Well-developed, well-nourished, and in no acute distress. VITAL SIGNS: Blood pressure 119/83, pulse 81 per minute, respirations 16 per minute, temperature 97.3. Pulse ox 93% on room air. HEENT: Head: Atraumatic. No sinus tenderness to palpation. Eyes: No icterus or conjunctivitis. Mouth and throat: No oral thrush or mucositis. NECK: Supple. No cervical or supraclavicular lymphadenopathy. LUNGS: Clear to auscultation and percussion bilaterally. HEART: Regular rate and rhythm. No gallops, murmurs, clicks or rubs. ABDOMEN: Soft and lax. No tenderness. No hepatosplenomegaly. No masses. EXTREMITIES: No cyanosis, clubbing or edema. LYMPHATICS: No peripheral lymphadenopathy. NEUROLOGICAL: Conscious, alert and oriented times three. No focal motor or sensory deficits. PSYCHIATRIC: Mood and affect appear normal. SKIN: No skin rash, bruise or purpuric eruption. DIAGNOSTIC DATA CBC showed a white count of 4.9, hemoglobin 15.1, hematocrit 44.2, platelet 216,000. Chem panel totally normal except sodium 134, BUN 20, blood sugar 133. LDH is normal at 472, and uric acid is normal at 5.8. ASSESSMENT 1. Recurrent follicular lymphoma, grade 1, with involvement of the right parotid gland. Patient initially diagnosed September 2008 with stage IV grade 1 follicular lymphoma with translocation (14,18) and complex cytogenetics. Patient treated at that time with six cycles of R-CHOP between September 2008 through January 2009 for six cycles, and the patient was put into complete remission after that. She received two courses of maintenance rituximab therapy for four weeks each course. She received the first course of maintenance rituximab therapy in July 2009 and the second course in January 2010. She presented with a mass of the right parotid gland, and excisional biopsy of the right parotid lymph node January 11, 2016, came back positive for low-grade follicular lymphoma grade 1-2. Ki-67 was high between 30% to 70%, average 50%. Cytogenetic analysis showed multiple chromosomal abnormalities. Patient received four courses of rituximab and bendamustine between February 10, 2016, through May 05, 2016. She started maintenance rituximab therapy every two months on July 18, 2016, and she completed 12 courses on 06 June 2018. Patient is doing fine currently except for extreme fatigue, and the patient claimed that when she was on IVIG, she was feeling better. 2. Hypogammaglobulinemia. Patient received IVIG in the past for recurrent upper respiratory tract infections and sinus infection. Patient has had a sinus infection since June of this year, and I am planning to check her quantitative immune globulins and IgG subclass quantitation. If the patient proves to have hypogammaglobulinemia, we will proceed with IVIG as she did in the past. PLAN 1. Quantitative immunoglobulins and subclass IgG to be checked today. 2. Patient to return in three months with CBC, chem panel, LDH, uric acid. 3. Consider IVIG if the patient has hypogammaglobulinemia. 4. Patient to contact us for any new concern or complaints. YANETH
[2018-10-23] MEDS: diphenhydrAMINE 50 MG/ML VIAL IVP PRN ×2 (13:40→13:42)
[2018-10-23] MEDS: HEPARIN FLSH (PORT) 500 UN/5ML IVP PRN (13:42)
[2018-10-23] MEDS: LIDOCAINE/SOD BICARB 8.4% SYR ID PRN (13:42)
[2018-10-23] MEDS: NS(*) 0.9% 100 ML BAG 100 ML IVPB PRN (13:43)
[2018-10-23 14:59] VITALS: BP 145/78
[2018-10-23 16:34] VITALS: BP 113/74
[~2018-11-20 12:00] MED LIST changes: +ACETAMINOPHEN 325 MG TAB PO PRN; -HEPARIN FLSH (PORT) 500 UN/5ML IVP PRN; +IMMU GLOB(IGG) 10GR/100ML VIAL 100 ML IV ONE; +IMMU GLOB(IGG) 20GR/200ML VIAL 200 ML IV ONE; -LIDOCAINE/SOD BICARB 8.4% SYR ID PRN; -NS(*) 0.9% 100 ML BAG 100 ML IVPB PRN
[2018-11-20 12:12] VITALS: BP 119/72
[2018-11-20] MEDS: diphenhydrAMINE 50 MG/ML VIAL IVP PRN (13:03)
[2018-11-20] MEDS: LIDOCAINE/SOD BICARB 8.4% SYR ID PRN (13:05)
[2018-11-20] MEDS: NS(*) 0.9% 100 ML BAG 100 ML IVPB PRN (13:06)
[2018-11-20] MEDS ORDERED: IMMU GLOB(IGG) 20GR/200ML VIAL 200 ML IV ONE (13:15)
[2018-11-20] MEDS ORDERED: IMMU GLOB(IGG) 10GR/100ML VIAL 100 ML IV ONE (13:15)
[2018-11-20 15:31] VITALS: BP 125/74
[2018-11-20] MEDS: HEPARIN FLSH (PORT) 500 UN/5ML IVP PRN (15:41)
--- NOTE | 2018-11-21 08:57 | Oncology Note ---
LATE ENTRY: Patient was in clinic on Sun11/20/18 for scheduled IVIG. 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 She believes she started getting a cold a few days ago and reports significant upper nasal congestion and well as a cough, which is sometimes productive of clear to white-colored sputum. She denies any fevers. She's been using Robitussin OTC. Cursory chairside exam reveled fairly normal lung assessment, with only a couple of faint expiratory wheezes heard in the lower lobes bilaterally. Remainder of lung exam was normal/clear. She has clear rhinorrhea noted to bilateral turbinates, posterior pharynx was only mildly erythematous, consistent with her cough. Called in Rx for Z-mann X1, no RFs. Patient has taken this in the past, but I did review how to take this with her. Recommended she continue with OTC George itussin, and add Mucinex and daily antihistamine such as Zyrtec. Advised on using throat lozenges, adequate rest and nutrition, as well as adequate oral fluid intake. She will call cancer center if symptoms worsen or for any temperature of 100.5 F or greater. She's to keep next scheduled F/U. M. HASMUKH Issa APRN, FNP November 21, 2018 08:57
== END 2018-12-09 ==
LOC: SPU 12:00
PROVIDERS: ATTEND Internal Medicine Hematology
DX: C82.09 Follicular lymphoma grade I, extranodal and solid organ sites (principal); R53.83 Other fatigue; D80.1 Nonfamilial hypogammaglobulinemia; Z92.21 Personal history of antineoplastic chemotherapy; R53.1 Weakness
CPT/HCPCS: 36415; 36591; 82784; 82787; 83615; 84550; 85025; 96365; 96366; 96375; 99212; J1200; J1459; J1642; J7050; 82040; 82247; 82310; 82374; 82435; 82565; 82947; 84075; 84132; 84155; 84295; 84450; 84460; 84520